=== PATIENT | male | born 1985 | race Caucasian/White ===

== ENCOUNTER 2019-11-02 01:21 | Emergency (ER) | payer SELFPAY ==
[2019-11-02 01:27] VITALS: BP 132/88; PULSE 91; RESP 18; TEMP 36.7; O2SAT 99; BMI 23.0
--- NOTE | 2019-11-02 01:34 | XR_ITS ---
WS: [id number] PORTABLE CHEST HISTORY: cp COMPARISON: None available. Lungs are clear and well expanded. No pleural effusion or pneumothorax. Cardiac size: Normal. Mediastinum/Aorta: Normal mediastinum. No osseous abnormality seen. XR/XR chest 1V portable [id number] IMPRESSION: Unremarkable portable chest.
--- NOTE | 2019-11-02 01:34 | ECG_ITS ---
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 Measurements Intervals [place] Rate: 76 P: 50 MO: 170 QRS: 57 QRSD: 122 T: 53 QT: 379 QTc: 428 Interpretive Statements SINUS RHYTHM MODERATE INTRAVENTRICULAR CONDUCTION DELAY [110+ ms QRS DURATION] No previous ECG available for comparison Electronically Signed On 11-02-2019 7:26:00 CDT by Felix Lakhani M.D. [id number] f
--- NOTE | 2019-11-02 01:35 | W.ED.SYNCOPE ---
HPI - Syncope General: Chief Complaint: Alcohol Stated Complaint: CP Time Seen by Provider: 11/02/19 01:32 Source: patient and EMS Mode of arrival: EMS Limitations: altered mental status History of Present Illness: HPI narrative: 34-year-old male who is here by EMS. Patient states he has had 9-10 beers tonight and then had passed out in front of bystanders. They were concerned that he was in cardiac arrest and perform CPR patient then awoke and EMS was called. Patient currently states he has slight chest pain from the compressions. He is well-appearing here. 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 Associated symptoms: Deny abdominal pain, fever(s), headache(s) or nausea Review of Systems Const: Denies: fever(s), chills, body aches or change in appetite Eyes: Denies: blurry vision or eye discomfort ENMT: Denies: throat pain or dental pain Card: Reports: syncope Resp: Denies: dyspnea GI: Denies: abdominal pain, nausea, vomiting or diarrhea : Denies: dysuria Musc: Denies: neck pain or back pain Skin/Breast: Denies: rash Neuro: Denies: headache(s) Psych: Denies: depression [place]/Lymph: Denies: easy bruising All/Imm: Denies: urticaria Physical Exam Const: COMMON NORMALS: no acute distress, patient oriented x3 and healthy appearing HENMT: COMMON NORMALS: normocephalic and atraumatic HEAD & SCALP: normocephalic and atraumatic Eye: COMMON NORMALS: Equal, round and reactive pupils present and EOMs intact bilaterally PUPIL: Yes Equal, round and reactive pupils present Neck/C-Spine: COMMON NORMALS: full ROM and supple Chest: COMMONS NORMALS: normal inspection of the chest OTHER: slight tenderness of anterior chest Resp: COMMON NORMALS: normal respiratory effort, No retractions, No use of accessory muscles and clear to auscultation bilaterally AUSCULTATION: clear to auscultation bilaterally Cardio: COMMON NORMALS: regular rate, regular rhythm and No murmurs present (Cardio) RATE: regular rate RHYTHM: regular rhythm GI: COMMON NORMALS: Normal to inspection, nondistended, normoactive bowel sounds present, Soft to palpation, non-tender and no masses PALPATION: Yes Soft to palpation Extremity: COMMON NORMALS: normal to inspection and full ROM Neuro: COMMON NORMALS: patient oriented x3, moves all extremities and no focal motor deficits Psych: COMMON NORMALS: mental status grossly normal, Normal thought process present and cooperative THOUGHT PROCESS: Normal thought process present Skin: COMMON NORMALS: no rashes or lesions noted and no wounds GENERAL SKIN EXAM: no rashes or lesions noted Course Vital Signs: Vital signs: Vital Signs Temperature 98.0 F 11/02/19 01:27 Pulse Rate 77 11/02/19 02:35 Respiratory Rate 16 11/02/19 02:35 Blood Pressure 111/81 11/02/19 02:35 Pulse Oximetry 94 11/02/19 02:35 MDM - Syncope MDM Narrative: Medical decision making narrative: Patient presents here with syncopal event likely from drinking too much alcohol. Patient is now awake and alert and stable here. EKG and x-ray are normal. Patient is able to ambulate and is stable for discharge. He is to follow-up primary care doctor and return if worsening. Imaging Data^: CXR: My impression: no acute abnormality EKG Data^: EKG 1: Attestation: I personally reviewed and interpreted this EKG as follows: EKG interpretation date: 11/02/19 EKG interpretation time: 01:59 Interpretation: nsr hr [address] or t wave abnormalities qrs 122 qtc 410 Discharge Plan Discharge Patient Disposition: Home, Self-Care Clinical Impression: Alcoholic intoxication Qualifiers: Complication of substance-induced condition: uncomplicated Qualified Code(s): F10.920 - Alcohol use, unspecified with intoxication, uncomplicated Condition: Stable Discharge Orders: Discharge Order (Routine); Ordered 11/02/19 Ordered By: Lauren Griggs Discharge Diet: Advance as tolerated Discharge Activity: Resume usual activity Patient Instructions: Alcohol Intoxication (ED) Coding Level of Care Code ED Ocean Biologist for Chg Fwd Exam Comprehensive
[2019-11-02 02:35] VITALS: BP 111/81; PULSE 77; RESP 16; O2SAT 94
[2019-11-02 04:08] VITALS: BP 124/80; PULSE 76; RESP 16; O2SAT 99
[2019-11-02 04:16] VITALS: BP 117/89; PULSE 76; RESP 16; O2SAT 97
== END 2019-11-02 04:19 | disposition home or self-care (01) ==
PROVIDERS: Emergency Provider Emergency Medicine
DX: F10.920 Alcohol use, unspecified with intoxication, uncomplicated (principal)
CPT/HCPCS: 12345; 71045; 93005; 99282; 99283